=== PATIENT | female | born 1965 | race Caucasian/White ===

== ENCOUNTER → 2021-03-02 14:47 | Outpatient (CLI) | payer BC, SELFPAY ==
--- NOTE | ~2021-03-02 | MM_ITS ---
EXAMINATION: MM screening [facility] BI w yue HISTORY: Screening mammogram TECHNIQUE: Craniocaudal and mediolateral oblique 3-D tomosynthesis images were obtained and synthetic 2-D images were generated. CAD analysis was submitted and interpreted. COMPARISON: 11/26/2018, 10/09/2017 BREAST PARENCHYMAL COMPOSITION: There are scattered areas of fibroglandular density. FINDINGS: There is no evidence of suspicious mass, calcification, or architectural distortion to sugg est malignancy in either breast. There has been no suspicious interval change. IMPRESSION: 1. No mammographic evidence of malignancy. 2. Recommend routine screening mammography in one year. BI-RADS Category 1: Negative Reviewed, dictated and finalized at location A.
== END ==
PROVIDERS: Visit Provider Nurse Practitioner
DX: Z12.31 Encounter for screening mammogram for malignant neoplasm of breast (principal)
CPT/HCPCS: 77063; 77067

== ENCOUNTER → 2021-03-09 16:02 | Outpatient (CLI) | payer BC, SELFPAY ==
--- NOTE | ~2021-03-09 | XR_ITS ---
XR knee LT 2V DATE: 03/09/2021 16:34 INDICATION: Long-term drug therapy TECHNIQUE: Standing AP and lateral views COMPARISON: None FINDINGS: No fracture or dislocation or joint effusion. No periosteal reaction or bone destruction. J oint spaces are relatively preserved. No radiopaque intra-articular loose body or chondrocalcinosis. Mild superior patellar enthesopathy at the quadriceps tendon insertion. IMPRESSION: No significant abnormality Reviewed, dictated and finalized at location B. IMPRESSION: No significant abnormality
--- NOTE | ~2021-03-09 | XR_ITS ---
XR knee RT 2V DATE: 03/09/2021 16:34 INDICATION: Long-term drug therapy TECHNIQUE: Standing AP and lateral views COMPARISON: None FINDINGS: There is minimal periarticular spurring of the patella. There is mild superior pole patella r enthesopathy at the quadriceps tendon insertion and lower pole patellar enthesopathy at the patella r tendon insertion. No fracture or dislocation or joint effusion. No periosteal reaction or bone destruction. No radiopaq ue intra-articular loose body or chondrocalcinosis. 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
--- NOTE | ~2021-03-09 | XR_ITS ---
XR hip BI wo pelvis DATE: 03/09/2021 16:34 INDICATION: Long-term drug therapy TECHNIQUE: AP and lateral views of each hip COMPARISON: None FINDINGS: No fracture or dislocation, avascular necrosis or bone destructive either hip is evident. H ip joint spaces appear symmetric and relatively preserved. The pubic symphysis and sacral iliac joints are intact. IMPRESSION: No significant abnormality Reviewed, dictated and finalized at location B. IMPRESSION: No significant abnormality
== END ==
DX: M32.19 Other organ or system involvement in systemic lupus erythematosus (principal); M25.559 Pain in unspecified hip; Z79.899 Other long term (current) drug therapy; M17.11 Unilateral primary osteoarthritis, right knee
CPT/HCPCS: 73521; 73560

== ENCOUNTER → 2021-03-31 08:45 | Outpatient (CLI) | payer BC, SELFPAY ==
--- NOTE | ~2021-03-31 | CT_ITS ---
EXAMINATION: CT sinus wo con DATE: 03/31/2021 08:59 INDICATION: Chronic sinusitis TECHNIQUE: Computed tomography (CT) of the paranasal sinuses was performed without contrast. Iterativ e reconstruction technique was employed. Exam dose: 269.39 mGy-cm total exam DLP. COMPARISON: None FINDINGS: There is leftward deviation of the lower nasal septum and mild rightward bowing of the uppe r nasal septum. There is moderate prominence of the nasal turbinates. Mild suha bullosa of left middle nasal turbin ate. The ostiomeatal units are patent bilaterally. Approximately 6.8 mm mucus retention cyst or polyp along the lower right anterior maxillary sinus wal l. 11.8 mm mucous retention cyst or polyp along the lower lateral left maxillary sinus wall. The paranasal sinuses are otherwise normally developed and aerated. The mastoid air cells are normally developed and aerated bilaterally. Middle and inner ear apparatus appear normal bilaterally. IMPRESSION: Mucous retention cyst or polyp of each maxillary sinus Leftward deviation of the lower nasal septum, mild rightward bowing of the upper nasal septum Reviewed, dictated and finalized at Location A. Reviewed, dictated and finalized at location B. IMPRESSION: Mucous retention cyst or polyp of each maxillary sinus Leftward deviation of the lower nasal septum, mild rightward bowing of the uppe r nasal septum
== END ==
PROVIDERS: Visit Provider Otolaryngology
DX: J32.9 Chronic sinusitis, unspecified (principal); J34.2 Deviated nasal septum
CPT/HCPCS: 70486

== ENCOUNTER → 2022-05-05 13:51 | Outpatient (CLI) | payer BC, SELFPAY ==
--- NOTE | ~2022-05-05 | MM_ITS ---
EXAMINATION: MM screening [facility] BI w yue HISTORY: Screening mammogram TECHNIQUE: Craniocaudal and mediolateral oblique 3-D tomosynthesis images were obtained and synthetic 2-D images were generated. CAD analysis was submitted and interpreted. COMPARISON: 03/02/2021, 11/26/2018, bilateral screening mammogram examinations BREAST PARENCHYMAL COMPOSITION: There are scattered areas of fibroglandular density. FINDINGS: There is no evidence of suspicious mass, calcification, or architectural distortion to sugg est malignancy in either breast. There has been no suspicious interval change. IMPRESSION: 1. No mammographic evidence of malignancy. 2. Recommend routine screening mammography in one year. BI-RADS Category 1: Negative Reviewed, dictated and finalized at location A.
== END ==
PROVIDERS: PCP Nurse Practitioner; Visit Provider Nurse Practitioner
DX: Z12.31 Encounter for screening mammogram for malignant neoplasm of breast (principal)
CPT/HCPCS: 77063; 77067

== ENCOUNTER → 2022-06-01 11:04 | Outpatient (CLI) | payer BC, SELFPAY ==
--- NOTE | ~2022-06-01 | DEXA_ITS ---
Bone Density Report Name: OPAL BOGGS Age: 57 Sex: Female Ethnicity: White Date of : 1965 Indication: postmenopausal; screening for osteoporosis; Referring Provider: DELMY, AIXA Study: Bone densitometry was performed. Exam Date: June 01, 2022 Accession number: [id number] Bone Density: Region BMD T-score Z-score Classification AP Spine (L1-L4) 1.061 0.1 1.2 Normal Femoral Neck (Left) 0.884 0.3 1.4 Normal Total Hip (Left) 1.097 1.3 2.0 Normal Femoral Neck (Right) 0.927 0.7 1.8 Normal Total Hip (Right) 1.064 1.0 1.7 Normal Total Hip Mean 1.081 1.2 1.9 Normal World Health Organization criteria for BMD impression classify patients as: Normal (T-score at or above -1.0), Osteopenia (T-score between -1.0 and -2.5), or Osteoporosis (T-score at or below -2.5). 10-year Fracture Risk: FRAX not reported because: All T-scores for Spine Total, Hip Total, Femoral Neck at or above -1.0 Clinical Information Provided by Patient: Smokes Has used the following medications: Vitamin D, Calcium Patient maximum height was 70 Menopause Age: 56 Drinks caffeinated beverages Onset of menses at age 18 Number of children 2 Missed period for more than 6 months in a row Impression: The patient has normal bone mass. The patient has risk factors, including: smoking. Discussion: BONE DENSITY IS ABOVE THE MINIMUM DESIRABLE LEVEL AT ALL SKELETAL SITES TESTED. This patient?s bone mineral density is above the minimum desirable level (T-score -1.0 or better) at all sites measured. The patient should follow a healthful lifestyle (good nutrition with adequate calcium and vitamin D, and appropriate weight-bearing exercise). Follow-Up: Consider repeating this study in 5 years or sooner if there is some new clinical indication. Reported by: [facility] on 06/01/2022 11:17:00 AM. Reviewed, dictated and finalized at location AYashira CONNELL
== END ==
PROVIDERS: PCP Nurse Practitioner; Visit Provider Nurse Practitioner
DX: Z78.0 Asymptomatic menopausal state (principal)
CPT/HCPCS: 77080

== ENCOUNTER → 2023-09-07 10:32 | Outpatient (CLI) | payer BC, SELFPAY ==
--- NOTE | ~2023-09-07 | MM_ITS ---
EXAMINATION: MM screening [facility] BI w yue HISTORY: Screening mammogram TECHNIQUE: Craniocaudal and mediolateral oblique 3-D tomosynthesis images were obtained and synthetic 2-D images were generated. CAD analysis was submitted and interpreted. COMPARISON: 05/05/2022, 03/02/2021, 11/26/2018 BREAST PARENCHYMAL COMPOSITION: There are scattered areas of fibroglandular density. FINDINGS: No suspicious mass, calcification, or architectural distortion are identified in either lexi ast to suggest malignancy. There has been no suspicious interval change. IMPRESSION: 1. No mammographic evidence of malignancy. 2. Recommend routine screening mammography in one year. BI-RADS Category 1: Negative Reviewed, dictated and finalized at location A. 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
== END ==
PROVIDERS: PCP Nurse Practitioner; Visit Provider Nurse Practitioner
DX: Z12.31 Encounter for screening mammogram for malignant neoplasm of breast (principal)
CPT/HCPCS: 77063; 77067

== ENCOUNTER → 2023-09-26 10:47 | Outpatient (CLI) | payer BC, SELFPAY ==
--- NOTE | ~2023-09-26 | XR_ITS ---
AP and lateral views of the left hip Clinical history: Pain Findings: No acute fracture or dislocation is seen. Osseous alignment is anatomic. There is minimal d egenerative change of the left hip joint, with spurring at the superolateral acetabular margin. Soft tissues are unremarkable. Impression: Minimal degenerative change, as above. 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
== END ==
DX: M16.12 Unilateral primary osteoarthritis, left hip (principal)
CPT/HCPCS: 73502

== ENCOUNTER 2024-09-09 10:41 | Outpatient (CLI) | payer BC, SELFPAY ==
--- NOTE | ~2024-09-09 | MM_ITS ---
EXAMINATION: MM screening [facility] BI w yue HISTORY: Screening mammogram TECHNIQUE: Craniocaudal and mediolateral oblique 3-D tomosynthesis images were obtained and synthetic 2-D images were generated. CAD analysis was submitted and interpreted. COMPARISON: 09/07/2023, 05/05/2022, 03/02/2021 BREAST PARENCHYMAL COMPOSITION:Not Dense. The breasts are almost entirely fatty FINDINGS: No suspicious mass, calcification, or architectural distortion are identified in either lexi ast to suggest malignancy. There has been no suspicious interval change. IMPRESSION: No mammographic evidence of malignancy. Recommend routine screening mammography in one year. BI-RADS Category 1: Negative Reviewed, dictated and finalized at location . 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
== END 2024-09-09 10:42 | disposition home or self-care (01) ==
PROVIDERS: PCP Nurse Practitioner; Visit Provider Nurse Practitioner
DX: Z12.31 Encounter for screening mammogram for malignant neoplasm of breast (principal)
CPT/HCPCS: 77063; 77067

== ENCOUNTER 2025-08-22 15:36 | Emergency (ER) | payer BC, SELFPAY ==
--- NOTE | 2025-08-22 15:49 | ED.URI ---
HPI - URI/Sore Throat General Chief Complaint: Upper Respiratory Infection Stated Complaint: Sore throat / son has strep Time Seen by Provider: 08/22/25 15:51 History of Present Illness HPI Narrative: female presented for complaint of sore throat for 2 days. Endorses mild nasal congestion and drainage. Denies headache, cough, nausea vomiting, diarrhea, fevers or chills Related Data Home Medications ?Medication ?Instructions ?Recorded ?Confirmed ?Last Taken ?Type levothyroxine 175 mcg tablet mcg 08/22/25 Unknown History loratadine .ROUTE 08/22/25 Unknown History Allergies Allergy/AdvReac Type Severity Reaction Status Date / Time Sulfa (Sulfonamide Allergy Unknown Unknown Verified 08/22/25 15:51 Antibiotics) Review of Systems Review of Systems: CONSTITUTIONAL: Denies body aches, fever, chills, or sweats. EYES: Denies visual changes, redness, or discharge. ENT: reports sore throat Denies rhinorrhea, congestion, or otalgia. CARDIOVASCULAR: Denies chest pain, palpitations, or edema. RESPIRATORY: Denies dyspnea. GASTROINTESTINAL: Denies abdominal pain, nausea, vomiting, or diarrhea. SKIN: Denies rash NEUROLOGIC: Denies headache Exam Narrative: GENERAL: well-appearing, no acute distress. EYES: conjunctivae clear ENT: Mucous membranes moist. TMs pearly rosa with normal light reflex bilaterally; no tragal tenderness. Oropharynx not erythematous without lesions. No drooling, no hoarseness, no trismus, uvula midline. No tripod positioning, hot potato voice, or soft palate swelling. NECK: Supple. No lymphadenopathy CHEST: Clear to auscultation, breath sounds equal. HEART: Regular rate and rhythm. SKIN: Warm, dry, no rash. NEURO: Alert and oriented x3. Course Course Level of Care: Express Care Visit Vital Signs Vital signs: Vital Signs Temperature 98 F 08/22/25 15:55 Pulse Rate 76 08/22/25 15:55 Respiratory Rate 16 08/22/25 15:55 Blood Pressure 131/79 08/22/25 15:55 Pulse Oximetry 99 08/22/25 15:55 Temperature 98 F 08/22/25 15:55 Pulse Rate 76 08/22/25 15:55 Respiratory Rate 16 08/22/25 15:55 Blood Pressure 131/79 08/22/25 15:55 Pulse Oximetry 99 08/22/25 15:55 MDM MDM Narrative Medical decision making narrative: Discussed physical exam findings. Advised supportive measures and signs/symptoms to go to the ER. Pt is appropriate for outpt treatment and f/u. Differential Diagnosis Differential Diagnosis: Influenza, covid, sinusitis, OM, strep pharyngitis, URI Discharge Plan Discharge Clinical Impression: Pharyngitis Patient Disposition: Home Condition: Stable Instructions: Antibiotic Form, Pharyngitis (ED) Additional Instructions: Rapid strep swab was negative today You will be notified in a few days if the culture comes back positive for strep, and appropriate antibiotics will be called in at that time. if symptoms are due to a viral illness, it is not treated with antibiotics. Viral symptoms can be present for up to 10-14 days. Recommendations: Flonase spray and Zyrtec for sinus congestion Cough syrup may cause drowsiness; avoid driving or take it at night time. Tylenol every 8 hours as needed for pain/fever Soft foods, cool liquids, warm tea. Gargle with warm saltwater twice a day. Chloraseptic spray and throat lozenges. Rest and stay hydrated. --Follow up with your PCP --Go to the ER immediately if you cannot swallow your saliva, trouble breathing/wheezing, throat swelling, pain is persistent and severe Patient Language: Palestinian Prescriptions: No Action levothyroxine 175 mcg tablet loratadine [Claritin] .ROUTE Follow-up/Referrals: Rory,Domitila Myrick DO [Primary Care Provider, Osteopathic Medicine] Time of Disposition: 16:06
[2025-08-22 15:55] VITALS: BP 131/79; PULSE 76; RESP 16; TEMP 36.6; O2SAT 99
[2025-08-22 16:13] LABS: EDSTREPNEGPOS1 Negative (Negative)
== END 2025-08-22 16:12 | disposition home or self-care (01) ==
PROVIDERS: Emergency Provider Nurse Practitioner Family; PCP Internal Medicine
DX: J02.9 Acute pharyngitis, unspecified (principal)
CPT/HCPCS: 87081; 87880; 99203; G0463